=== PATIENT | female | born 1970 | race Caucasian/White ===

== ENCOUNTER 2023-12-06 12:27 | Outpatient (CLI) | payer OTHER | END 2023-12-06 12:28 | disposition home or self-care (01) | LOC: CSHMAMMO 12:27 | PROVIDERS: ATTEND Obstetrics & Gynecology | DX: Z12.31 Encounter for screening mammogram for malignant neoplasm of breast (principal); Z80.3 Family history of malignant neoplasm of breast | CPT/HCPCS: 77063; 77067 ==

== ENCOUNTER 2024-12-15 13:54 | Outpatient (CLI) | payer OTHER | END 2024-12-15 13:55 | disposition home or self-care (01) | LOC: CSHMAMMO 13:54 | PROVIDERS: ATTEND Obstetrics & Gynecology | DX: Z12.31 Encounter for screening mammogram for malignant neoplasm of breast (principal); Z78.0 Asymptomatic menopausal state; Z80.3 Family history of malignant neoplasm of breast | CPT/HCPCS: 77063; 77067; 77080 ==